=== PATIENT | male | born 1950 | race African-American/Black ===

== ENCOUNTER 2019-01-27 17:19 | Emergency (ER) | payer OTHER ==
[~2019-01-27] VITALS: Ht 170.2 cm; Wt 81.7 kg
[2019-01-27 18:11] LABS: BASOPHILS % 2.3 % (0.0-2.0); EOSINOPHILS % 5.4 % (0.0-5.0); HEMATOCRIT. 40.3 % (42.0-52.0); HEMOGLOBIN. 13.8 g/dL (14.0-18.0); LYMPHOCYTES % 28.2 % (20.0-50.0); MEAN CORPUSCULAR VOLUME 87.7 fL (80.0-94.0); MEAN PLATELET VOLUME 7.9 fl (7.4-10.4); MONOCYTES % 7.8 % (2.0-8.0); NEUTROPHILS % 56.3 % (40.0-76.0); PLATELET 212 x1000/uL (130-400); RED BLOOD CELL COUNT 4.59 mill/uL (4.7-6.1)
[2019-01-27 18:17] LABS: CHLORIDE 102 mEq/L (98-107)
[2019-01-27 18:27] LABS: ETHANOL BLOOD < 10 mg/dL
[2019-01-27 18:28] LABS: LDL CHOLESTEROL 63 mg/dL (5-100)
[2019-01-27 18:30] LABS: CREATINE KINASE 108 IU/L (39-308)
[2019-01-27 18:31] LABS: PROTHROMBIN TIME 10.6 sec (9.6-11.0)
[2019-01-27] MEDS ORDERED: ASPIRIN 81MG TABLET PO ONE (19:00)
[2019-01-27 19:51] VITALS: BP 134/87
== END 2019-01-27 20:45 | disposition short-term general hospital (02) ==
LOC: ER 17:19 → CANBEDREQ 22:22
DX: I63.9 Cerebral infarction, unspecified (principal); R53.1 Weakness; R47.9 Unspecified speech disturbances; I10 Essential (primary) hypertension
CPT/HCPCS: 36415; 71045; 80320; 82550; 82962; 83721; 83880; 84443; 84484; 93005; 99285; G0480